=== PATIENT | female | born 1965 | race Caucasian/White ===

== ENCOUNTER 2016-08-29 14:14 | Emergency (ER) | payer BC ==
--- NOTE | 2016-08-29 14:34 | PDOC ---
History of Present Illness <Yung Mejia - Last Filed: 08/29/16 15:54> - History of Present Illness Initial Comments: 08/29/16 14:54 The patient is a 51 year old female, with no significant past medical history psoriasis (on humira) and GERD, who presents to the emergency department with left upper quadrant pain that started at 4:30AM. She reports the pain was sharp , 6/10 in severity, which woke her up from sleep. She states the pain lasted momentarily and remained a dull, constant pain throughout the remainder of the day, however, denies pain at this time. She states she was urged by family to have her pain evaluated. She denies back pain, dyspnea, dyspnea on exertion, palpitations, and lightheadedness. She denies chest pain, headache and dizziness. She denies fever, chills, nausea , vomit, diarrhea and constipation. She denies dysuria, frequency, urgency and hematuria. The patient denies recent travel/surgeries/immobility, lower extremity edema, calf pain or tenderness, tobacco use, hormone use, personal or family history of thrombosis. Allergies: Codeine Social history: Denies toxic habits PCP - Dr. Yvette Tinajero <Hawa Rowell - Last Filed: 08/29/16 15:57> - General Chief Complaint: Pain Stated Complaint: LUQ PAIN/under left breast Time Seen by Provider: 08/29/16 14:17 Past History - Past Medical History Diabetes: No HTN: No Hypercholesterolemia: No - Immunization History Td Vaccination: Yes - Psycho/Social/Smoking Cessation Hx Anxiety: No Suicidal Ideation: No Smoking Status: No Smoking History: Never smoked Number of Cigarettes Smoked Daily: 0 Hx Alcohol Use: No Substance Use Type: None <Yung Mejia - Last Filed: 08/29/16 15:54> <Hawa Rowell - Last Filed: 08/29/16 15:57> - Past Medical History Allergies/Adverse Reactions: Allergies Allergy/AdvReac Type Severity Reaction Status Date / Time codeine [Codeine] Allergy Verified 08/29/16 14:26 Home Medications: Ambulatory Orders Atenolol 50 mg PO DAILY 01/07/12 Fluoxetine HCl [Prozac -] 20 mg PO DAILY 01/07/12 Adalimumab [Humira] 0 mg SQ ASDIR 09/14/14 Naproxen [Naprosyn] 500 mg PO BID PRN #10 tablet 08/29/16 Review of Systems - Review of Systems Able to Perform ROS?: Yes Comments:: 08/29/16 14:54 CONSTITUTIONAL: Absent: fever, chills, diaphoresis, generalized weakness, malaise, loss of appetite HEENT: Absent: rhinorrhea, nasal congestion, throat pain, throat swelling, difficulty swallowing, mouth swelling, ear pain, eye pain, visual Changes CARDIOVASCULAR: Absent: chest pain, syncope, palpitations, irregular heart rate, lightheadedness , peripheral edema RESPIRATORY: Absent: cough, shortness of breath, dyspnea with exertion, orthopnea, wheezing, stridor, hemoptysis GASTROINTESTINAL: (+) LUQ pain. Absent: abdominal distension, nausea, vomiting, diarrhea, constipation, melena, hematochezia GENITOURINARY: Absent: dysuria, frequency, urgency, hesitancy, hematuria, flank pain, genital pain MUSCULOSKELETAL: Absent: myalgia, arthralgia, joint swelling SKIN: Absent: rash, itching, pallor HEMATOLOGIC/IMMUNOLOGIC: Absent: easy bleeding, easy bruising, lymphadenopathy, frequent infections ENDOCRINE: Absent: unexplained weight gain, unexplained weight loss, heat intolerance, cold intolerance NEUROLOGIC: Absent: headache, focal weakness or paresthesias, dizziness, unsteady gait, seizure, mental status changes, bladder or bowel incontinence PSYCHIATRIC: Absent: anxiety, depression, suicidal or homicidal ideation, hallucinations. <Hawa Rowell - Last Filed: 08/29/16 15:57> *Physical Exam - Vital Signs Last Vital Signs Temp Pulse Resp BP Pulse Ox 98 F 76 20 137/74 100 08/29/16 14:15 08/29/16 14:15 08/29/16 14:15 08/29/16 14:15 08/29/16 14:15 - Physical Exam Comments: 08/29/16 14:55 GENERAL: Well developed, well nourished. Awake and alert. No acute distress. HEENT: Normocephalic, atraumatic. PERRLA, EOMI. No conjunctival pallor. Sclera are non- icteric. Moist mucous membranes. Oropharynx is clear. NECK: Supple. Full ROM. No JVD. Carotid pulses 2+ and symmetric, without bruits. No thyromegaly. No lymphadenopathy. CARDIOVASCULAR: Regular rate and rhythm. No murmurs, rubs, or gallops. Distal pulses are 2+ and symmetric. PULMONARY: No evidence of respiratory distress. Lungs clear to auscultation bilaterally. No wheezing, rales or rhonchi. ABDOMINAL: Soft. Non-tender. Non-distended. No rebound or guarding. No organomegaly. Normoactive bowel sounds. MUSCULOSKELETAL (+)tenderness to the left sternocostal margin on palpation. Normal range of motion at all joints. No bony deformities or tenderness. No CVA tenderness. EXTREMITIES: No cyanosis. No clubbing. No edema. No calf tenderness. SKIN: Warm and dry. Normal capillary refill. No rashes. No jaundice. NEUROLOGICAL: Alert, awake, appropriate. Cranial nerves 2-12 intact. Normoreflexic in the upper and lower extremities. Normal speech. Toes are down-going bilaterally. Gait is normal without ataxia. PSYCHIATRIC: Cooperative. Good eye contact. Appropriate mood and affect. <Hawa Rowell - Last Filed: 08/29/16 15:57> Heart Score/ECG Review - ECG Intrepretation Comment:: 08/29/16 14:59 Normal sinus rhythm at 60, left axis deviation, borderline criteria for left ventricular hypertrophy, Q wave in 3 and aVF I am unable to see the prior EKG image. However, and EKG report from 09/18/14 did document possible inferior infarct <Yung Mejia - Last Filed: 08/29/16 15:54> Medical Decision Making - Medical Decision Making 08/29/16 14:48 The patient is well appearing and in no acute distress She is completely asymptomatic She states that she was urged to come due to family concern for potential " heart attack" The pain is atypical and seems most consistent with musculospeletal pain She tells me that she is able to reproduce it by movement On my exam there is some tenderness to the left sternocostal margin on palpation Given that the pain has been constant, will obtain and EKG and Troponin to r/o ACS 08/29/16 15:16 EKG noted, no change as per prior dictation Labs pending 08/29/16 15:54 Labs noted with negative troponin Clinical impression: Musculoskeletal chest pain I discussed the physical exam findings, ancillary test results and final diagnoses with the patient. I answered all of the patient's questions. The patient was satisfied with the care received and felt comfortable with the discharge plan and treatment plan. The patient will call their primary care physician within 24 hours to arrange follow-up and will return to the Emergency Department with any new, persistent or worsening symptoms. A portion of this note was documented by scribe services under my direction. I have reviewed the details of the note, within reason, and agree with the documentation with the following case summary and management plan written by me. <Yung Mejia - Last Filed: 08/29/16 15:54> *DC/Admit/Observation/Transfer <Yung Mejia - Last Filed: 08/29/16 15:54> - Attestations Scribe Attestion: 08/29/16 14:55 Documentation prepared by Hawa Rowell, acting as certified medical aide for Yung Mejia MD <Hawa Rowell - Last Filed: 08/29/16 15:57> Diagnosis at time of Disposition: Musculoskeletal chest pain - Discharge Dispostion Disposition: HOME Condition at time of disposition: Improved - Prescriptions Prescriptions: Naproxen [Naprosyn] 500 mg PO BID PRN #10 tablet PRN Reason: Pain - Referrals Referrals: Melody Tinajero MD [Primary Care Provider] - - Patient Instructions Printed Discharge Instructions: DI for Atypical Chest Pain Additional Instructions: Return to the emergency department immediately with ANY new, persistent or worsening symptoms. You MUST call and follow up with your doctor tomorrow. Please make sure your doctor reviews the results of your emergency department evaluation.
[2016-08-29 14:37] VITALS: BP 137/74; PULSE 76; TEMP 98; BMI 33.7
[2016-08-29 15:26] LABS: CPK(DFH) 161 IU/L (26-140)
[2016-08-29 15:48] LABS: CK MB 5.4 ng/ml (0.3-4.0); TROPONIN I (DFP) < 0.03 ng/ml (0.03-0.50)
--- NOTE | 2016-08-30 14:49 | EKG ---
Test Reason : Blood Pressure : / mmHG Vent. Rate : 061 BPM Atrial Rate : 061 BPM P-R Int : 150 ms QRS Dur : 074 ms QT Int : 422 ms P-R-T Axes : -02 -14 002 degrees QTc Int : 424 ms NORMAL SINUS RHYTHM INFERIOR INFARCT , AGE UNDETERMINED ABNORMAL ECG NO PREVIOUS ECGS AVAILABLE Confirmed by RENETTA SANFORD, NADIRA ([id number]) on 08/30/2016 2:48:48 PM Referred By: IRMA BYRD Confirmed By:NADIRA JACKSON MD
== END 2016-08-29 15:57 | disposition home or self-care (01) ==
LOC: FER 14:14
DX: R07.89 Other chest pain (principal); K21.9 Gastro-esophageal reflux disease without esophagitis
CPT/HCPCS: 36415; 82550; 82553; 84484; 93005; 99283-25